=== PATIENT | female | born 1965 | race Caucasian/White ===

== ENCOUNTER 2023-02-18 15:22 | Outpatient (CLI) | payer BC | END 2023-02-18 15:23 | disposition home or self-care (01) | LOC: CSHMAMMO 15:22 | PROVIDERS: ATTEND Family Medicine | DX: Z12.31 Encounter for screening mammogram for malignant neoplasm of breast (principal); Z98.82 Breast implant status | CPT/HCPCS: 77063; 77067 ==

== ENCOUNTER 2023-02-20 13:56 | Emergency (ER) | payer BC ==
[2023-02-20] MEDS ORDERED: HYDROcodone/Acetaminophen 5/325 mg Tablet ONE ×2 (15:43→15:50)
== END 2023-02-20 18:31 | disposition home or self-care (01) ==
LOC: CSHERS 13:56
DX: S93.401A Sprain of unspecified ligament of right ankle, initial encounter (principal); S93.601A Unspecified sprain of right foot, initial encounter; S73.101A Unspecified sprain of right hip, initial encounter; F17.210 Nicotine dependence, cigarettes, uncomplicated; W10.1XXA Fall (on)(from) sidewalk curb, initial encounter